=== PATIENT | male | born 1945 | race Caucasian/White ===

== ENCOUNTER 2023-07-19 00:43 | Emergency (ER) | payer MEDICARE ==
[2023-07-19] MEDS ORDERED: EPINEPHrine 1 MG/10 ML Abboject SYRINGE ONE (00:48)
[2023-07-19] MEDS ORDERED: Calcium Chloride 1 GM/10 ML Abboject SYRINGE ONE (00:48)
[2023-07-19] MEDS ORDERED: Sodium Bicarb 50 MEQ/50 ML Abboject 8.4% SYRINGE ONE (00:48)
== END 2023-07-19 01:09 | disposition expired ==
LOC: ERS 00:43
DX: I46.9 Cardiac arrest, cause unspecified (principal)
CPT/HCPCS: 92950; J0171